=== PATIENT | female | born 1945 ===

== ENCOUNTER → 2020-02-17 | Day surgery (SDC) | payer OTHER ==
[~2020-02-17] MED LIST: BONIVA150 MG PO; CALCIUM PO; COZAAR100 MG PO; LEVOX PO; MACROBID 100 M100 MG PO; NORVASC5 MG PO; ULTRAM50 MG PO; VITAMIN D3 PO
== END | disposition home or self-care (01) ==
LOC: ADM 01-09 10:00 → CIR.AMB 05:00
DX: N81.3 Complete uterovaginal prolapse (principal)